=== PATIENT | female | born 1990 | race Caucasian/White ===

== ENCOUNTER 2019-04-10 12:37 | Outpatient (CLI) | payer MEDICAID ==
[~2019-04-10] VITALS: Ht 175.3 cm; Wt 125.9 kg
[2019-04-10] MEDS ORDERED: PREN-93 PO (12:45)
[2019-04-10 12:46] VITALS: Ht 175.3 cm; Wt 125.9 kg
[2019-04-10 12:47] VITALS: BP 126/74; PULSE 81; RESP 18
--- NOTE | 2019-04-10 13:34 | PN ---
Triage Information Date/Time Reason for visit: DFM Weeks of Gestation 26+ /Para 3/1 Diabetes: none Objective Vital Signs Date Temp Pulse Resp B/P (MAP) Pulse Ox O2 O2 Flow FiO2 Time Delivery Rate 04/10/19 98.2 81 18 126/74 Room Air 12:47 (91) Heart Rate: 140's Contractions: None Disposition: Discharge Assessment/Plan +FM BPP 06/28 Discharged with precautions Questions answered Follow up with provider BEA HERNANDEZ M.D. April 10, 2019 13:34
--- NOTE | 2019-04-10 13:41 | TRIAGE ---
OB Triage Datetime Report Generated by CPN: 04/10/2019 13:41 Datetime: 04/10/2019 12:59 Maternal Assessment Level of Consciousness: Fully Conscious DTR's/Clonus: DTRs 1+ Headache: Denies Blurred Vision: No Respiratory Effort: Unlabored Breath Sounds, Left: Clear and Equal Breath Sounds, Right: Clear and Equal Nausea/Vomiting: Denies RUQ Epigastric Pain: Denies Facial Edema: None Labor Evaluation Frequency: NONE Monitor Mode: External Resting Tone [place]: Relaxed Heart Rate FHR Baseline Rate: 140 Monitor Mode: External US Variability: Moderate 6-25 bpm Accelerations: 10X10 Decelerations: None Category: Category I Pain Assessment Pain Scale: 0 Pain Presence: None/Denies Pain Type: N/A Pain Goal: 3 Vaginal Exam Membrane Status: Intact Datetime: 04/10/2019 12:41 Assessment Type: Triage Maternal Assessment Level of Consciousness: Fully Conscious DTR's/Clonus: DTRs 2+; No Clonus Headache: Denies Blurred Vision: No Respiratory Effort: Unlabored; Regular Rhythm; Equal Expansion Breath Sounds, Left: Clear and Equal Breath Sounds, Right: Clear and Equal Nausea/Vomiting: Denies RUQ Epigastric Pain: Denies Lower Extremities Edema: None Degree: None Upper Extremities Edema: None Degree: None Facial Edema: None Fall Risk Assessment History of Falling: (0) No Secondary Diagnosis: (0) No Ambulatory Aid: (0) Bedrest/Nurse Assist IV Therapy: (0) No Gait: (0) Normal/Bedrest/Immobile Mental Status: (0) Oriented to Own Ability Fall Score: 0 Fall Risk Score Definition: No Risk: No action required Datetime: 04/10/2019 12:40 Time of Arrival: 04/10/2019 12:26 EGA: 26.2 Arrived By: Ambulatory Arrived From: Home Chief Complaint: PT. HERE C/O DFM SINCE YESTERDAY Movement: Decreased Contractions: Denies/Absent Rupture of Membranes: Denies Vaginal Bleeding: None Vaginal Discharge: Present Recent Sexual Intercouse: Denies Abdominal Trauma: Not Applicable Patient Complaints: None Additional Patient Complaints: NONE Time Provider Notified: 04/10/2019 13:20 Provider Notified: LICHA Initial Plan: NST/BPP Datetime: 04/10/2019 12:39 Monitor Mode: External Monitor Mode: External US
== END 2019-04-10 13:38 | disposition home or self-care (01) ==
LOC: OBT 12:37 → L-D 12:39 → OBT 13:38
PROVIDERS: ATTEND Obstetrics & Gynecology
DX: O36.8120 Decreased fetal movements, second trimester, not applicable or unspecified (principal); Z3A.26 26 weeks gestation of pregnancy
CPT/HCPCS: 76818; Z7500; G0463

== ENCOUNTER 2019-07-16 09:09 | Inpatient (IN) | payer BC, MEDICAID ==
[~2019-07-16] VITALS: Ht 175.3 cm; Wt 127.4 kg
[~2019-07-16 09:09] MED LIST: IBUP-1542 PO; PREN-93 PO
[2019-07-16 09:28] VITALS: Ht 175.3 cm; Wt 127.4 kg
[2019-07-16 09:32] VITALS: BP 128/77; PULSE 75; RESP 18
[2019-07-16] MEDS ORDERED: METHYLERGONOVINE 0.2 MG INJ IM PRN (11:00)
[2019-07-16] MEDS ORDERED: MISOPROSTOL 200 MCG TAB PR PRN (11:00)
[2019-07-16] MEDS ORDERED: OXYTOCIN 30 UNITS/LR 500 ML IV SCH ×2 (11:00)
[2019-07-16] MEDS ORDERED: OXYTOCIN 30 UNITS/LR 500 ML IV PRN (11:00)
[2019-07-16] MEDS ORDERED: CARBOPROST 250 MCG INJ IM PRN (11:00)
[2019-07-16] MEDS ORDERED: AMPICILLIN 2 GM/NS (PMX) 100 ML IV ONE (11:00)
[2019-07-16] MEDS ORDERED: LIDOCAINE 1% (MPF) 30 ML INJ INJ PRN (11:00)
[2019-07-16] MEDS ORDERED: BUTORPHANOL 2 MG INJ IV PRN ×2 (11:00)
[2019-07-16] MEDS: LACTATED RINGER'S 1,000 ML IV SCH ×2 (11:26→19:34)
[2019-07-16] MEDS: MISOPROSTOL 50 MCG CAPSULE PO SCH ×3 (13:01→22:15)
[2019-07-16] MEDS ORDERED: AMPICILLIN 1 GM/NS (PMX) 50 ML IV SCH (15:00)
[2019-07-17] MEDS ORDERED: MINERAL OIL LIGHT 10 ML VIAL TOP PRN (03:30)
[2019-07-17] MEDS: LACTATED RINGER'S 1,000 ML IV SCH ×3 (03:37→21:14)
[2019-07-17] MEDS: MISOPROSTOL 50 MCG CAPSULE PO SCH ×3 (04:22→12:16)
[2019-07-17] MEDS ORDERED: OXYTOCIN 30 UNITS/LR 500 ML IV SCH (20:00)
[2019-07-17] MEDS ORDERED: LACTATED RINGER'S 1,000 ML IV PRN (23:25)
[2019-07-18] MEDS ORDERED: NALOXONE (0.4 MG/ML) INJ IV PRN
[2019-07-18] MEDS ORDERED: FENTAnyl 2MCG/ML-ROPIV 0.2% 100 ML BAG EPI SCH
[2019-07-18 04:06] VITALS: BP 132/74; PULSE 77; RESP 18
[2019-07-18 04:20] VITALS: BP 135/80; PULSE 78; RESP 18
[2019-07-18 05:00] VITALS: BP 132/68; PULSE 68; RESP 17
[2019-07-18] MEDS ORDERED: LACTATED RINGER'S 1,000 ML IV* SCH (05:24)
[2019-07-18] MEDS ORDERED: ACETAMINOPHEN 325 MG TAB PO PRN (05:30)
[2019-07-18] MEDS ORDERED: HYDROCODONE/APAP (5/325) TAB PO PRN (05:30)
[2019-07-18] MEDS ORDERED: BENZOCAINE 20% 56 ML SPRAY TOP PRN (05:30)
[2019-07-18] MEDS ORDERED: CARBOPROST 250 MCG INJ IM PRN (05:30)
[2019-07-18] MEDS ORDERED: OXYTOCIN 30 UNITS/LR 500 ML IV PRN (05:30)
[2019-07-18] MEDS ORDERED: MISOPROSTOL 200 MCG TAB PR PRN (05:30)
[2019-07-18] MEDS ORDERED: WITCH HAZEL/GLYCERIN PAD PR PRN (05:30)
[2019-07-18] MEDS ORDERED: METHYLERGONOVINE 0.2 MG INJ IM PRN (05:30)
[2019-07-18] MEDS ORDERED: DIBUCAINE 1% 30 GM OINT TOP PRN (05:30)
[2019-07-18] MEDS: IBUPROFEN 600 MG TAB PO SCH ×4 (06:10→23:46)
[2019-07-18 07:50] VITALS: BP 126/71; PULSE 65; RESP 18
[2019-07-18] MEDS: SENNA/DOCUSATE NA (8.6MG/50MG) TAB PO SCH ×2 (09:32→21:17)
[2019-07-18 15:58] VITALS: BP 122/77; PULSE 62; RESP 18
[2019-07-18 21:19] VITALS: BP 132/70; PULSE 62; RESP 19
[2019-07-19 03:15] VITALS: BP 107/62; PULSE 63; RESP 20
[2019-07-19] MEDS: IBUPROFEN 600 MG TAB PO SCH ×4 (05:23→23:31)
[2019-07-19 08:00] VITALS: BP 117/62; PULSE 70; RESP 18
[2019-07-19] MEDS: SENNA/DOCUSATE NA (8.6MG/50MG) TAB PO SCH ×2 (09:49→20:54)
[2019-07-19 17:29] VITALS: BP 120/68; PULSE 69; RESP 18
[2019-07-19 20:05] VITALS: BP 132/80; PULSE 65; RESP 19
[2019-07-20 03:40] VITALS: BP 108/55; PULSE 55; RESP 19
[2019-07-20] MEDS: IBUPROFEN 600 MG TAB PO SCH ×2 (05:33→12:21)
[2019-07-20 08:00] VITALS: BP 123/76; PULSE 70; RESP 16
[2019-07-20] MEDS ORDERED: DIPHTH/TET/ACEL PERTUSS (ADULT) 0.5 ML VIAL IM* ONE (09:00)
[2019-07-20] MEDS: SENNA/DOCUSATE NA (8.6MG/50MG) TAB PO SCH (09:54)
== END 2019-07-20 12:25 | disposition home or self-care (01) | DRG 807 ==
LOC: OBT 09:09 → L-D 09:10 → OBT 10:40 → L-D 10:51 → PP1 07-18 04:58
PROVIDERS: ADMIT Obstetrics & Gynecology; ATTEND Obstetrics & Gynecology
PROC: 10E0XZZ Delivery of Products of Conception, External Approach (ICD-10-PCS; principal; 2019-07-18)
PROC: 0KQM0ZZ Repair Perineum Muscle, Open Approach (ICD-10-PCS; 2019-07-18)
DX: O48.0 Post-term pregnancy (principal); Z37.0 Single live birth; O70.1 Second degree perineal laceration during delivery; Z3A.40 40 weeks gestation of pregnancy
CPT/HCPCS: 62322; 76815; 76818; 81001; 85025; 85610; 85730; 86592; 86850; 86900; 86901; 87340; 99464; G0463; J2590; J3010; J7120